=== PATIENT | female | born 2000 | race Caucasian/White ===

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

== ENCOUNTER 2019-01-02 11:59 | Emergency (ER) | payer SELFPAY ==
[2019-01-02 13:47] LABS: Urine Blood TRACE (NEG); Urine Glucose NEGATIVE (NEG); Urine Protein TRACE (NEG); Urine Specific Gravity >1.030 (1.005-1.030); Urine pH 5.5 (5.0-7.0)
[2019-01-02 14:01] LABS: Absolute Lymphocytes (CBC) 1.5 K/uL (0.7-4.9); Basophils % 0.3 % (0-1.3); Eosinophils % 1.8 % (0-4.4); Hematocrit 40.5 % (36.0-45.0); Lymphocytes % 37.8 % (15.3-44.8); MPV 9.1 fL (7.6-11.3); Monocytes % 12.9 % (3.3-12.3); RBC Red Blood Cell Count 4.52 M/uL (3.86-4.86)
[2019-01-02 14:17] LABS: BUN Blood Urea Nitrogen 9 mg/dL (7-18); Bicarbonate 27 mmol/L (21-32); Glucose Level 90 mg/dL (74-106); Potassium 3.9 mmol/L (3.5-5.1); Sodium Level 142 mmol/L (136-145); Troponin (Emerg Dept Use Only) < 0.02 ng/mL (0.0-0.045)
--- NOTE | 2019-01-02 14:58 | RAD REPORT ---
EXAM DESCRIPTION: RAD - Chest Single View - 01/02/2019 2:36 pm CLINICAL HISTORY: Syncope, shortness of breath COMPARISON: November 2016 TECHNIQUE: AP portable chest image was obtained 1434 hours . FINDINGS: Lungs are clear. Heart and vasculature are normal. No measurable pleural effusion and no p neumothorax. No acute bony abnormality seen. No acute aortic findings suspected. IMPRESSION: No acute cardiopulmonary process.
[2019-01-02] MEDS ORDERED: NA CHLORIDE 0.9% 1,000 ML ONE (15:18)
--- NOTE | 2019-01-02 15:39 | ER ---
Nurse's Notes 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 Transition of care: patient was not received from another setting of care. Onset of symptoms was January 02, 2019. Risk Assessment: Do you want to hurt yourself or someone else? Patient reports no desire to harm self or others. Initial Sepsis Screen: Does the patient meet any 2 criteria? No. Patient's initial sepsis screen is negative. Does the patient have a suspected source of infection? No. Patient's initial sepsis screen is negative. Care prior to arrival: None. 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 - Social history:: Smoking status: unknown. - Ebola Screening: : No symptoms or risks identified at this time. Screenin:22 Abuse screen: Denies threats or abuse. Denies injuries from another. Nutritional mg2 screening: No deficits noted. Tuberculosis screening: No symptoms or risk factors identified. Fall Risk IV access (20 points). Assessment: 14:21 General: Appears in no apparent distress. comfortable, Behavior is calm, cooperative. mg2 Pain: Complains of pain in flank Pain does not radiate. Pain currently is 2 out of 10 on a pain scale. Quality of pain is described as aching, Pain began gradually. Neuro: Level of Consciousness is awake, alert, obeys commands, Oriented to person, place, time, situation. Neuro: Reports weakness. Cardiovascular: Capillary refill < 3 seconds Patient's skin is warm and dry. Respiratory: Airway is patent Respiratory effort is even, unlabored, Respiratory pattern is regular, symmetrical. GI: No signs and/or symptoms were reported involving the gastrointestinal system. : No signs and/or symptoms were reported regarding the genitourinary system. EENT: No signs and/or symptoms were reported regarding the EENT system. Derm: Skin is intact, is healthy with good turgor, Skin is pink, warm \\T\\ dry. normal. Musculoskeletal: Circulation, motion, and sensation intact. Capillary refill < 3 seconds. 15:54 Reassessment: Patient appears in no apparent distress at this time. Patient states mg2 feeling better. Patient states symptoms have improved. Vital Signs: 12:10 BP 131 / 70; Pulse 61; Resp 18; Temp 98.1(O); Pulse Ox 100% on R/A; Weight 54.88 kg; hj Height 5 ft. 8 in. (172.72 cm); Pain 0/10; 13:49 BP 101 / 65 LA Supine (auto/reg); Pulse 59; Pulse Ox 100% on R/A; jp3 13:51 BP 116 / 76 LA Sitting (auto/reg); Pulse 64; Pulse Ox 100% on R/A; jp3 13:53 BP 112 / 81 LA Standing (auto/reg); Pulse 73; Pulse Ox 100% on R/A; jp3 15:54 BP 100 / 63; Pulse 57; Resp 18; Temp 98.5; Pulse Ox 100% on R/A; Pain 0/10; mg2 12:10 Body Mass Index 18.40 (54.88 kg, 172.72 cm) hj 13:49 Pt states "I feel dizzish; like blood is rushing to my head." jp3 13:51 Pt states: "I feel anxious and dizzier (worse than supine position)" jp3 13:53 Pt states: "I feel dizzy; but better than I did sitting or in supine position" jp3 ED Course: 12:02 Patient arrived in ED. mr 12:10 Triage completed. hj 12:10 Arm band placed on left wrist. hj 12:51 Dany Uribe PA is PHCP. cp 12:51 Eran Bond MD is Attending Physician. cp 12:53 Ronald Griffin, LUIS is Primary Nurse. mg2 13:45 No provider procedures requiring assistance completed. Inserted saline lock: 20 gauge mg2 in right antecubital area, using aseptic technique. Blood collected. 14:23 Patient has correct armband on for positive identification. Pulse ox on. NIBP on. Door mg2 closed. Warm blanket given. 14:32 X-ray completed. Portable x-ray completed in exam room. Patient tolerated procedure jb2 well. 14:36 XRAY Chest (1 view) In Process Unspecified. EDMS 15:54 IV discontinued, intact, bleeding controlled, No redness/swelling at site. Pressure mg2 dressing applied. Administered Medications: 15:02 Drug: NS 0.9% 1000 ml Route: IV; Rate: 1 bolus; Site: right antecubital; mg2 15:47 Follow up: Response: No adverse reaction; IV Status: Completed infusion; IV Intake: mg2 1000ml Intake: 15:47 IV: 1000ml; Total: 1000ml. mg2 Outcome: 15:38 Discharge ordered by MD. joaquina 15:55 Discharged to home ambulatory. mg2 15:55 Condition: stable 15:55 Discharge instructions given to patient, Instructed on discharge instructions, follow up and referral plans. Demonstrated understanding of instructions, follow-up care. 15:55 Patient left the ED. mg2 Signatures: Dispatcher [employer] EDMS Roxanna Butts Jesse jb2 Dontae Ordoñez RN RN hj Dany Uribe PA PA cp Gardose, Michele, RN RN mg2 Colton Mejia jp3 Corrections: (The following items were deleted from the chart) 12:12 12:10 Pulse 61bpm; Resp 18bpm; Pulse Ox 100% RA; Temp 98.1F Oral; 54.88 kg; Height 5 hj ft. 8 in.; BMI: 18.4; Pain 0/10; hj
--- NOTE | 2019-01-02 15:39 | EDPHYS ---
Physician Documentation [facility] Name: Ayanna Fisher Age: 18 yrs Sex: Female : 2000 Arrival Date: 01/02/2019 Time: 12:02 Bed 24 Private MD: ED Physician Eran Bond HPI: 01/02 13:25 This 18 yrs old Female presents to ER via Ambulatory with complaints of Blood cp Pressure Problem. 13:25 The patient has experienced near-syncope, almost passed out, felt faint. Onset: The cp symptoms/episode began/occurred today. 13:25 Duration: This was a single episode. Associated injury: The patient did not suffer any cp apparent associated injury. 13:25 Associated signs and symptoms: Pertinent positives: diarrhea, lightheadedness, nausea, cp Pertinent negatives: abdominal pain, chest pain, headache, palpitations, seizure. 13:25 Context: occurred at home, occurred while the patient was standing, Just prior to the cp episode the patient experienced lightheadedness. Current symptoms: general weakness. 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 - Social history:: Smoking status: unknown. - Ebola Screening: : No symptoms or risks identified at this time. ROS: 13:30 Constitutional: Negative for body aches, chills, fever, poor PO intake. cp 13:30 Eyes: Negative for injury, pain, redness, and discharge. cp 13:30 ENT: Negative for drainage from ear(s), ear pain, sore throat, difficulty swallowing, difficulty handling secretions. 13:30 Neck: Negative for pain with movement, pain at rest, stiffness, tenderness. 13:30 Cardiovascular: Negative for chest pain, edema, palpitations. 13:30 Respiratory: Negative for cough, dyspnea on exertion, shortness of breath, wheezing. 13:30 Back: Negative for pain at rest, pain with movement. 13:30 : Negative for urinary symptoms, pelvic pain, vaginal bleeding. 13:30 Skin: Negative for rash. 13:30 Neuro: Positive for near syncope, general weakness, Negative for altered mental status, headache, seizure activity, syncope. 13:30 Abdomen/GI: Positive for nausea, diarrhea, Negative for abdominal pain, vomiting, cp constipation, anorexia, black/tarry stool, rectal bleeding. 13:30 All other systems are negative. Exam: 13:40 ECG was reviewed by the Attending Physician. cp 13:42 Constitutional: The patient appears in no acute distress, alert, awake, non-toxic, well cp developed, well nourished. 13:42 Head/Face: Normocephalic, atraumatic. cp 13:42 Eyes: Periorbital structures: appear normal, Pupils: equal, round, and reactive to light and accomodation, Extraocular movements: intact throughout, Conjunctiva: normal, no exudate, no injection, Lids and lashes: appear normal, bilaterally. 13:42 ENT: External ear(s): are unremarkable, Ear canal(s): are normal, clear, TM's: dullness, bilaterally, Nose: is normal, Mouth: Lips: moist, Oral mucosa: pink and intact, moist, Posterior pharynx: is normal, airway is patent, no erythema, no exudate. 13:42 Neck: ROM/movement: is normal, is supple, without pain, no range of motions limitations, no meningismus, no nuchal rigidity. 13:42 Chest/axilla: Inspection: normal, Palpation: is normal, no crepitus, no tenderness. 13:42 Cardiovascular: Rate: normal, Rhythm: regular, Pulses: Pulses are 2+ in right radial artery and left radial artery. Heart sounds: murmur, not appreciated, rub, not appreciated, gallop, not appreciated, Edema: is not appreciated, JVD: is not appreciated. 13:42 Respiratory: the patient does not display signs of respiratory distress, Respirations: normal, no use of accessory muscles, no retractions, no splinting, no tachypnea, labored breathing, is not present, Breath sounds: are clear throughout, no decreased breath sounds, no stridor, no wheezing. 13:42 Abdomen/GI: Inspection: abdomen appears normal, Bowel sounds: active, all quadrants, Palpation: abdomen is soft and non-tender, in all quadrants, rebound tenderness, is not appreciated, involuntary guarding, is not appreciated. 13:42 Back: pain, is absent, ROM is normal. 13:42 Skin: cellulitis, is not appreciated, no rash present. 13:42 Neuro: Orientation: to person, place \\T\\ time. Mentation: is normal, Cerebellar function: is grossly normal, Motor: moves all fours, strength is normal, Sensation: is normal, Gait: is steady, at a normal pace, without difficulty. Vital Signs: 12:10 BP 131 / 70; Pulse 61; Resp 18; Temp 98.1(O); Pulse Ox 100% on R/A; Weight 54.88 kg; hj Height 5 ft. 8 in. (172.72 cm); Pain 0/10; 13:49 BP 101 / 65 LA Supine (auto/reg); Pulse 59; Pulse Ox 100% on R/A; jp3 13:51 BP 116 / 76 LA Sitting (auto/reg); Pulse 64; Pulse Ox 100% on R/A; jp3 13:53 BP 112 / 81 LA Standing (auto/reg); Pulse 73; Pulse Ox 100% on R/A; jp3 15:54 BP 100 / 63; Pulse 57; Resp 18; Temp 98.5; Pulse Ox 100% on R/A; Pain 0/10; mg2 12:10 Body Mass Index 18.40 (54.88 kg, 172.72 cm) 13:49 Pt states "I feel dizzish; like blood is rushing to my head." jp3 13:51 Pt states: "I feel anxious and dizzier (worse than supine position)" jp3 13:53 Pt states: "I feel dizzy; but better than I did sitting or in supine position" jp3 MDM: 12:58 Patient medically screened. cp 15:37 Data reviewed: vital signs, nurses notes, lab test result(s), EKG, radiologic studies, cp plain films, and as a result, I will discharge patient. 15:37 Differential Diagnosis: cardiac arrhythmia, drug effect, GI bleed, idiopathic syncope, cp seizure, vasovagal episode, electrolyte abnormality. Test interpretation: by ED physician or midlevel provider: ECG, plain radiologic studies. Counseling: I had a detailed discussion with the patient and/or guardian regarding: the historical points, exam findings, and any diagnostic results supporting the discharge/admit diagnosis, lab results, radiology results, to return to the emergency department if symptoms worsen or persist or if there are any questions or concerns that arise at home. Response to treatment: the patient's symptoms have mildly improved after treatment, and as a result, I will discharge patient. ED course: VSS. Discussed results of today's testing. Patient reports improvement of symptoms. Patient denies any symptoms while exercising and no family history of early cardiac . Will discharge to home for continued monitoring. 01/02 13:21 Order name: Basic Metabolic Panel 01/02 13:21 Order name: CBC with Diff 01/02 13:21 Order name: Troponin (emerg Dept Use Only); Complete Time: 14:57 01/02 13:21 Order name: D-Dimer; Complete Time: 14:57 cp 01/02 13:23 Order name: Basic Metabolic Panel; Complete Time: 14:57 EDMS 01/02 14:58 Interpretation: Normal except: CL 108. 01/02 13:23 Order name: CBC with Automated Diff; Complete Time: 14:57 EDMS 01/02 14:58 Interpretation: Normal except: WBC 4.0; MCV 89.6; MN% 12.9. 01/02 12:12 Order name: Urine Dipstick-Ancillary (obtain specimen); Complete Time: 13:37 hj 01/02 12:12 Order name: Urine Test (obtain specimen); Complete Time: 13:37 hj 01/02 13:21 Order name: XRAY Chest (1 view); Complete Time: 15:18 cp 01/02 13:21 Order name: EKG; Complete Time: 13:24 cp 01/02 13:21 Order name: Cardiac monitoring; Complete Time: 13:45 cp 01/02 13:37 Order name: Urine Dipstick--Ancillary (enter results); Complete Time: 14:57 bd 01/02 13:37 Order name: Urine --Ancillary (enter results); Complete Time: 14:57 bd 01/02 13:21 Order name: EKG - Nurse/Tech; Complete Time: 13:45 cp 01/02 13:21 Order name: IV Saline Lock; Complete Time: 13:45 cp 01/02 13:21 Order name: Labs collected and sent; Complete Time: 13:45 cp 01/02 13:21 Order name: O2 Per Protocol; Complete Time: 13:45 cp 01/02 13:21 Order name: O2 Sat Monitoring; Complete Time: 13:45 cp 01/02 13:21 Order name: Orthostatics; Complete Time: 13:56 cp EC:40 Rate is 54 beats/min. Rhythm is regular. MN interval is normal. QRS interval is normal. cp QT interval is normal. T waves are Inverted in lead aVL. Interpreted by me. Reviewed by me. Administered Medications: 15:02 Drug: NS 0.9% 1000 ml Route: IV; Rate: 1 bolus; Site: right antecubital; mg2 15:47 Follow up: Response: No adverse reaction; IV Status: Completed infusion; IV Intake: mg2 1000ml Disposition: 16:10 Co-signature as Attending Physician, Eran Bond MD I agree with the assessment and kdr plan of care. Disposition: 01/02/19 15:38 Discharged to Home. Impression: Near-syncope. - Condition is Stable. - Discharge Instructions: Near-Syncope, Form - Excuse from Work, School, or Physical Activity. - Medication Reconciliation Form, Thank You Letter, Antibiotic Education, Prescription Opioid Use, Work release form form. - Follow up: Private Physician; When: 2 - 3 days; Reason: Recheck today's complaints. - Problem is new. - Symptoms have improved. Signatures: Dispatcher [employer] EDMS Eran Bond MD MD [facility] Dontae Ordoñez RN RN Dany Uribe PA PA cp Ronald Griffin RN RN mg2 Corrections: (The following items were deleted from the chart) 15:55 15:38 01/02/2019 15:38 Discharged to Home. Impression: Near-syncope. Condition is mg2 Stable. Forms are Work release form, Medication Reconciliation Form, Thank You Letter, Antibiotic Education, Prescription Opioid Use. Follow up: Private Physician; When: 2 - 3 days; Reason: Recheck today's complaints. Problem is new. Symptoms have improved. cp 01/03 15:38 01/02 13:30 Abdomen/GI: Positive for diarrhea, Negative for abdominal pain, vomiting, cp constipation, black/tarry stool, rectal bleeding, cp 01/03 15:38 01/02 13:30 All other systems are negative, cp cp
[2019-01-02 16:04] VITALS: O2SAT 100
[2019-01-02 16:09] VITALS: BP 100/63; TEMP 98.5
--- NOTE | 2019-01-02 16:28 | EKG ---
Test Date: 2019-01-02 Test Time: 13:30:36 Mammographer: MICHAEL/Monika MEASUREMENT RESULTS: Intervals: Rate: 54 MS: 138 QRSD: 80 QT: 432 QTc: 409 [place]: P: 6 MS: 138 QRS: 88 T: 76 INTERPRETIVE STATEMENTS: Sinus bradycardia Otherwise normal ECG No previous ECG available for comparison Electronically Signed On 01-02-19 16:27:20 CDT by Isak Santana
== END 2019-01-02 15:55 | disposition home or self-care (01) ==
LOC: ER 11:59
DX: R55 Syncope and collapse (principal); R19.7 Diarrhea, unspecified
CPT/HCPCS: 36415; 71045; 80048; 81003; 81025; 84484; 85025; 85379; 93005; 96360; 99284; J7030

== ENCOUNTER 2019-07-12 15:41 | Emergency (ER) | payer SELFPAY ==
--- NOTE | 2019-07-12 17:21 | ER ---
Nurse's Notes [facility] Name: Ayanna Fisher Age: 18 yrs Sex: Female : 2000 Arrival Date: 07/12/2019 Time: 15:43 Bed 12 Private MD: Diagnosis: Acute pharyngitis Presentation: 07/12 16:11 Presenting complaint: Patient states: sore throat and fever since 07/09. c/o headache sr5 and ear pain also. Motrin at noon. Transition of care: patient was not received from another setting of care. Onset of symptoms was July 09, 2019. Risk Assessment: Do you want to hurt yourself or someone else? Patient reports no desire to harm self or others. Initial Sepsis Screen: Does the patient meet any 2 criteria? No. Patient's initial sepsis screen is negative. Does the patient have a suspected source of infection? Yes: Other: sore throat. Care prior to arrival: Medication(s) given: Motrin. 16:11 Method Of Arrival: Ambulatory sr5 16:11 Acuity: GABINO 4 sr5 Triage Assessment: 16:13 General: Appears ill, Behavior is calm, cooperative. Pain: Complains of pain in neck sr5 Pain currently is 7 out of 10 on a pain scale. EENT: Reports sore throat, headache, ear ache. 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 - Social history:: Smoking status: Patient/guardian denies using tobacco, never smoked. - Ebola Screening: : Patient negative for fever greater than or equal to 101.5 degrees Fahrenheit, and additional compatible Ebola Virus Disease symptoms. Screenin:45 Abuse screen: Denies threats or abuse. Nutritional screening: No deficits noted. ae4 Tuberculosis screening: No symptoms or risk factors identified. Fall Risk None identified. Assessment: 17:20 General: Appears in no apparent distress. comfortable, slender, Behavior is calm, ae4 cooperative. Pain: Complains of pain in left buccal mucosa, right buccal mucosa, left aspect of posterior pharynx and right aspect of posterior pharynx Pain currently is 8 out of 10 on a pain scale. Neuro: Level of Consciousness is awake, alert, obeys commands, Oriented to person, place, time, situation, Appropriate for age. Cardiovascular: Patient's skin is warm and dry. Respiratory: Airway is patent Respiratory effort is even, unlabored, Breath sounds are clear bilaterally. GI: No signs and/or symptoms were reported involving the gastrointestinal system. : No signs and/or symptoms were reported regarding the genitourinary system. EENT: Throat is reddened has patchy exudate bilaterally. Derm: No signs and/or symptoms reported regarding the dermatologic system. Skin is pale. Musculoskeletal: No signs and/or symptoms reported regarding the musculoskeletal system. Vital Signs: 16:13 BP 119 / 80; Pulse 70; Resp 14; Temp 98.3; Pulse Ox 100% ; Weight 54.43 kg (R); Height sr5 5 ft. 8 in. (172.72 cm); Pain 6/10; 16:13 Body Mass Index 18.25 (54.43 kg, 172.72 cm) sr5 ED Course: 15:43 Patient arrived in ED. rg4 15:44 Jasmina Potts FNP-C is [facility]. snw 15:44 Janes Saenz MD is Attending Physician. snw 16:12 Triage completed. sr5 16:13 Arm band placed on right wrist. sr5 16:19 Emily Archuleta, RN is Primary Nurse. iw 18:45 Patient has correct armband on for positive identification. ae4 18:45 No provider procedures requiring assistance completed. Patient did not have IV access ae4 during this emergency room visit. Administered Medications: 17:20 Drug: Decadron - Dexamethasone 10 mg {Note: Administered PO with juice.} Route: IVP; ae4 Site: Other; 17:46 Follow up: Response: Medication administered at discharge. ae4 17:20 Drug: Tussionex Pennkinetic ER 5 ml Route: PO; ae4 17:46 Follow up: Response: Medication administered at discharge. ae4 Outcome: 17:20 Discharge ordered by . snw 17:45 Discharged to home ambulatory, with family. ae4 17:45 Condition: stable 17:45 Discharge instructions given to patient, family, Instructed on discharge instructions, follow up and referral plans. Demonstrated understanding of instructions, follow-up care. 17:46 Patient left the ED. ae4 Signatures: Jasmina Potts, TECHNICAL SERVICES MANAGER-C TECHNICAL SERVICES MANAGER-Csnw Emily Archuleta, RN RN iw Ananth Orantes RN RN sr5 [facility] Fabian Garrido RN RN ae4
--- NOTE | 2019-07-12 17:22 | EDPHYS ---
Physician Documentation [facility] Name: Ayanna Fisher Age: 18 yrs Sex: Female : 2000 Arrival Date: 07/12/2019 Time: 15:43 Bed 12 Private MD: ED Physician Janes Saenz HPI: 07/12 16:51 This 18 yrs old Female presents to ER via Ambulatory with complaints of snw Fever, Sore Throat, Ear Pain. 16:51 The patient reports fever, that was measured at 102 degrees Fahrenheit. Onset: The snw symptoms/episode began/occurred suddenly, yesterday. Modifying factors: there are no obvious modifying factors. Associated signs and symptoms: Pertinent positives: decreased appetite, earache, myalgias, sore throat. Severity of symptoms: At their worst the symptoms were moderate in the emergency department the symptoms are unchanged. The patient has not experienced similar symptoms in the past. The patient has not recently seen a physician. [employer]: 16:13 LMP 06/28/2019 sr5 Historical: - Allergies: 16:13 No Known Allergies; sr5 - Home Meds: 16:13 None [Active]; sr5 - PMHx: 16:13 UTI; sr5 - PSHx: 16:13 None; sr5 - Immunization history:: Flu vaccine is not up to date. - Social history:: Smoking status: Patient/guardian denies using tobacco, never smoked. - Ebola Screening: : Patient negative for fever greater than or equal to 101.5 degrees Fahrenheit, and additional compatible Ebola Virus Disease symptoms. ROS: 16:50 Constitutional: Negative for chills and weight loss, + bodyaches and fever Eyes: snw Negative for injury, pain, redness, and discharge, Neck: Negative for injury, pain, and swelling, Cardiovascular: Negative for chest pain, palpitations, and edema, Respiratory: Negative for shortness of breath, cough, wheezing, and pleuritic chest pain, Abdomen/GI: Negative for abdominal pain, nausea, vomiting, diarrhea, and constipation, Back: Negative for injury and pain, : Negative for injury, bleeding, discharge, and swelling, MS/Extremity: Negative for injury and deformity, Skin: Negative for injury, rash, and discoloration, Neuro: Negative for headache, weakness, numbness, tingling, and seizure. 16:50 ENT: Positive for ear pain, sore throat. Exam: 16:49 Head/Face: Normocephalic, atraumatic. Eyes: Pupils equal round and reactive to light, snw extra-ocular motions intact. Lids and lashes normal. Conjunctiva and sclera are non-icteric and not injected. Cornea within normal limits. Periorbital areas with no swelling, redness, or edema. Neck: Trachea midline, no thyromegaly or masses palpated, and no cervical lymphadenopathy. Supple, full range of motion without nuchal rigidity, or vertebral point tenderness. No Meningismus. Chest/axilla: Normal chest wall appearance and motion. Nontender with no deformity. No lesions are appreciated. Cardiovascular: Regular rate and rhythm with a normal S1 and S2. No gallops, murmurs, or rubs. Normal PMI, no JVD. No pulse deficits. Respiratory: Lungs have equal breath sounds bilaterally, clear to auscultation and percussion. No rales, rhonchi or wheezes noted. No increased work of breathing, no retractions or nasal flaring. Abdomen/GI: Soft, non-tender, with normal bowel sounds. No distension or tympany. No guarding or rebound. No evidence of tenderness throughout. Back: No spinal tenderness. No costovertebral tenderness. Full range of motion. Skin: Warm, dry with normal turgor. Normal color with no rashes, no lesions, and no evidence of cellulitis. MS/ Extremity: Pulses equal, no cyanosis. Neurovascular intact. Full, normal range of motion. Neuro: Awake and alert, GCS 15, oriented to person, place, time, and situation. Cranial nerves II-XII grossly intact. Motor strength 5/5 in all extremities. Sensory grossly intact. Cerebellar exam normal. Normal gait. Psych: Awake, alert, with orientation to person, place and time. Behavior, mood, and affect are within normal limits. 16:49 Constitutional: The patient appears awake, pale, uncomfortable. 16:49 ENT: External ear(s): are unremarkable, Ear canal(s): are normal, TM's: are normal, Nose: is normal, Mouth: is normal, Posterior pharynx: swelling, that is mild, erythema, that is marked, exudate, that is mild. Vital Signs: 16:13 BP 119 / 80; Pulse 70; Resp 14; Temp 98.3; Pulse Ox 100% ; Weight 54.43 kg (R); Height sr5 5 ft. 8 in. (172.72 cm); Pain 6/10; 16:13 Body Mass Index 18.25 (54.43 kg, 172.72 cm) sr5 MDM: 16:42 Patient medically screened. snw 17:22 Data reviewed: vital signs, nurses notes. Data interpreted: Pulse oximetry: on room air snw is 100 %. Interpretation: normal. Counseling: I had a detailed discussion with the patient and/or guardian regarding: the historical points, exam findings, and any diagnostic results supporting the discharge/admit diagnosis, lab results, the need for outpatient follow up, to return to the emergency department if symptoms worsen or persist or if there are any questions or concerns that arise at home. 07/12 15:45 Order name: Flu; Complete Time: 17:12 snw 07/12 15:45 Order name: Strep; Complete Time: 17:05 snw 07/12 17:11 Order name: Throat Culture EDMS Administered Medications: 17:20 Drug: Decadron - Dexamethasone 10 mg {Note: Administered PO with juice.} Route: IVP; ae4 Site: Other; 17:46 Follow up: Response: Medication administered at discharge. ae4 17:20 Drug: Tussionex Pennkinetic ER 5 ml Route: PO; ae4 17:46 Follow up: Response: Medication administered at discharge. ae4 Disposition: 19:07 Co-signature as Attending Physician, Janes Saenz MD. rn Disposition: 07/12/19 17:20 Discharged to Home. Impression: Acute pharyngitis. - Condition is Stable. - Discharge Instructions: Fever, Adult, Pharyngitis, Rehydration, Adult. - Work release form, Medication Reconciliation Form, Thank You Letter, Antibiotic Education, Prescription Opioid Use form. - Follow up: Emergency Department; When: As needed; Reason: Worsening of condition. Follow up: Private Physician; When: 1 - 2 days; Reason: Recheck today's complaints, Continuance of care, Re-evaluation by your physician. Signatures: Dispatcher [employer] EDMS Jasmina Potts, LIBRARY MONITOR-C LIBRARY MONITOR-Csnw Janes Saenz MD MD rn Ananth Orantes RN RN sr5 Fabian Garrido RN RN ae4 Corrections: (The following items were deleted from the chart) 16:51 16:50 Constitutional: Negative for fever, chills, and weight loss, Eyes: Negative for snw injury, pain, redness, and discharge, Neck: Negative for injury, pain, and swelling, Cardiovascular: Negative for chest pain, palpitations, and edema, Respiratory: Negative for shortness of breath, cough, wheezing, and pleuritic chest pain, Abdomen/GI: Negative for abdominal pain, nausea, vomiting, diarrhea, and constipation, Back: Negative for injury and pain, : Negative for injury, bleeding, discharge, and swelling, MS/Extremity: Negative for injury and deformity, Skin: Negative for injury, rash, and discoloration, Neuro: Negative for headache, weakness, numbness, tingling, and seizure, snw 17:46 17:20 07/12/2019 17:20 Discharged to Home. Impression: Acute pharyngitis. Condition is ae4 Stable. Forms are Medication Reconciliation Form, Thank You Letter, Antibiotic Education, Prescription Opioid Use. Follow up: Emergency Department; When: As needed; Reason: Worsening of condition. Follow up: Private Physician; When: 1 - 2 days; Reason: Recheck today's complaints, Continuance of care, Re-evaluation by your physician. snw
[2019-07-12] MEDS ORDERED: dexAMETHasone 10 MG/ML VIAL ONE (17:35)
[2019-07-12] MEDS ORDERED: HYDROCODONE/CHLORPHEN 5 ML/OSYR ONE (17:36)
[2019-07-12 18:47] VITALS: TEMP 97.9
[2019-07-12 18:50] VITALS: BP 198/98; O2SAT 99
== END 2019-07-12 17:46 | disposition home or self-care (01) ==
LOC: ER 15:41
DX: J02.9 Acute pharyngitis, unspecified (principal)
CPT/HCPCS: 87070; 87081; 87804; 96374; 99283; J1100